=== PATIENT | female | born 1975 | race Caucasian/White ===

== ENCOUNTER 2018-09-10 10:29 | Emergency (ER) | payer MEDICAID ==
[~2018-09-10] VITALS: Ht 154.9 cm; Wt 59.1 kg
[~2018-09-10 10:29] MED LIST: HYDR1TAB PO; IBUP-2070 PO; NOCURR
[2018-09-10] MEDS ORDERED: METF-444 PO (10:45)
[2018-09-10] MEDS ORDERED: LIDOCAINE 5% TRANSDERMAL PATCH TD ONE (12:30)
[2018-09-10] MEDS ORDERED: METHOCARBAMOL 500 MG TABLET PO ONE (12:30)
[2018-09-10] MEDS ORDERED: KETOROLAC TROMETHAMINE 30 MG/ML VIAL IM ONE (12:30)
[2018-09-10 13:17] VITALS: BP 141/81
[2018-09-11 11:14] LABS: GLUCOSE,POINT OF CARE 121 MG/DL (70-110)
== END 2018-09-10 13:45 | disposition home or self-care (01) ==
LOC: EDUNIT# 10:29 → EMS 10:36
DX: M54.6 Pain in thoracic spine (principal); R03.0 Elevated blood-pressure reading, without diagnosis of hypertension; E11.9 Type 2 diabetes mellitus without complications; Z79.84 Long term (current) use of oral hypoglycemic drugs; V49.9XXA Car occupant (driver) (passenger) injured in unspecified traffic accident, initial encounter; Y93.89 Activity, other specified; Y92.89 Other specified places as the place of occurrence of the external cause; Y99.8 Other external cause status
CPT/HCPCS: 96372; 99283